=== PATIENT | male | born 1935 | race African-American/Black ===

== ENCOUNTER 2016-10-03 15:20 | Emergency (ER) | payer MEDICARE ==
[2016-10-03 16:13] LABS: INR-International Normal Ratio 1.8; PTT 36.5 SEC (22.9-36.1)
[2016-10-03] MEDS ORDERED: Enoxaparin Sodium 100 MG/ML SYRINGE ONE (16:19)
[2016-10-03 16:20] LABS: Anion Gap 13 mmol/L (10-20); BUN (Urea Nitrogen) 14 mg/dL (8.4-25.7); Calc. Creatinine Clearance 0 mL/min (70-130); Calcium 8.7 mg/dL (7.8-10.44); Carbon Dioxide 25 mmol/L (23-31); Chloride 109 mmol/L (98-107); Estimated GFR-MDRD 66; Glucose 103 mg/dL (83-110); Potassium 3.5 mmol/L (3.5-5.1); Sodium 143 mmol/L (136-145)
[2016-10-03 16:31] LABS: Eosinophils 3 % (0-10); Hemoglobin 13.1 g/dL (14.0-18.0); Lymphocytes 25 % (21-51); MDiff Complete? YES; Mean Corpuscular HGB CONC 31.5 g/dL (32.0-36.0); Mean Corpuscular Hemoglobin 25.9 pg (27.0-31.0); Mean Corpuscular Volume 82.4 fl (80.0-94.0); Mean Platelet Volume 8.2 fL (7.4-10.4); Monocytes 7 % (0-10); Neutrophil 65 % (42-75); Platelet Count 200 thou/uL (130-400); RBC Distribution Width 13.9 % (11.5-14.5); Red Blood Cell (RBC) Count 5.05 mill/uL (4.70-6.10); Target Cells SLIGHT = 2-5 cells (100X) (0-1/hpf); White Blood Cell (WBC) Count 6.7 thou/uL (4.8-10.8)
== END 2016-10-03 16:44 | disposition short-term general hospital (02) ==
LOC: BURERS 15:20
DX: R60.0 Localized edema (principal); Z86.73 Personal history of transient ischemic attack (TIA), and cerebral infarction without residual deficits; Z79.01 Long term (current) use of anticoagulants
CPT/HCPCS: 80048; 85025; 85610; 85730; 96372; J1650

== ENCOUNTER 2016-11-03 15:35 | Emergency (ER) | payer MEDICARE ==
[2016-11-03] MEDS ORDERED: HYDROcodone/Acetaminophen 5/325 mg Tablet ONE (15:47)
--- NOTE | 2016-11-03 17:42 | CT ---
CT OF BRAIN PERFORMED WITHOUT CONTRAST ENHANCEMENT: 11/03/16 HISTORY: Patient fell. On blood thinners. There is generalized ventricular and sulcal prominence. There is decreased attenuation of the perive ntricular white matter consistent with chronic ischemic white matter change. There is no signs of in tracerebral hemorrhage or extra-axial fluid collections. There is some mucosal change in the mastoid air cells. The visualized sinuses are clear. IMPRESSION: No acute intracranial abnormalities. POS: [facility]
--- NOTE | 2016-11-03 17:45 | CT ---
CT OF LUMBAR SPINE PERFORMED WITHOUT CONTRAST ENHANCEMENT: 11/03/16 HISTORY: Back pain status post fall. The abdominal aorta is normal in caliber. Small periaortic nodes are seen. The visualized portions o f the kidneys show a small hypodensity involving the right kidney, most likely a small cyst. The vertebral bodies show some minimal compression changes of the superior end plate of L2 without b yareli retropulsion. I suspect that this is more acute in nature. The remainder of the vertebral bodies maintain normal height. There is degenerative osteophytes present and there is moderate disc narrow ing at L5-S1. Degenerative facet changes are noted. The facet changes are associated with canal narr owing at L2-3, L3-4, and L4-5 which is mild to moderate. Some of this is related to somewhat congeni tally narrowed appearing canal. IMPRESSION: Very mild acute appearing compression injury involving the superior end plate of L2. POS: [facility]
== END 2016-11-03 18:08 | disposition home or self-care (01) ==
LOC: BURERS 15:35
DX: S32.029A Unspecified fracture of second lumbar vertebra, initial encounter for closed fracture (principal); E78.00 Pure hypercholesterolemia, unspecified; Z86.73 Personal history of transient ischemic attack (TIA), and cerebral infarction without residual deficits; Z86.718 Personal history of other venous thrombosis and embolism; Z79.01 Long term (current) use of anticoagulants; W05.0XXA Fall from non-moving wheelchair, initial encounter
CPT/HCPCS: 70450; 72131

== ENCOUNTER 2017-04-24 15:30 | Emergency (ER) | payer MEDICARE | END 2017-04-24 16:12 | disposition home or self-care (01) | LOC: BURERS 15:30 | DX: I83.228 Varicose veins of left lower extremity with both ulcer of other part of lower extremity and inflammation (principal); E78.00 Pure hypercholesterolemia, unspecified; Z86.718 Personal history of other venous thrombosis and embolism | CPT/HCPCS: 99282 ==

== ENCOUNTER 2017-07-14 13:45 | Inpatient (IN) | payer MEDICARE ==
[2017-07-14 18:21] VITALS: BMI 23.3
[2017-07-14 18:45] LABS: Prothrombin Time 22.9 SEC (12.0-14.7)
[2017-07-14] MEDS: Docusate 100 MG CAP PO SCH (20:34)
[2017-07-14] MEDS: Atorvastatin Calcium 10 MG TAB PO SCH (20:34)
[2017-07-14] MEDS: Sulfameth/Trimethoprim DS 800-160mg TAB PO SCH (20:34)
[2017-07-14] MEDS: hydrALAZINE 25 MG TAB PO SCH (20:35)
[2017-07-14] MEDS ORDERED: Prevnar 13-Val Conj/PF 0.5 ML SYRINGE IM ONE (21:00)
[2017-07-15 05:25] LABS: INR-International Normal Ratio 1.9
[2017-07-15 05:36] LABS: Hemoglobin 13.4 g/dL (14.0-18.0); Platelet Count 319 thou/uL (130-400)
[2017-07-15] MEDS: Sulfameth/Trimethoprim DS 800-160mg TAB PO SCH ×2 (08:47→20:49)
[2017-07-15] MEDS: Docusate 100 MG CAP PO SCH ×2 (08:47→20:49)
[2017-07-15] MEDS: Aspirin 81 mg Enteric Coated Tablet PO SCH (08:48)
[2017-07-15] MEDS: hydrALAZINE 25 MG TAB PO SCH ×3 (08:48→20:48)
[2017-07-15] MEDS: Warfarin Sodium 7.5 MG TAB PO SCH (17:26)
[2017-07-15] MEDS ORDERED: Zolpidem Tartrate 5 MG TAB PO PRN (18:45)
[2017-07-15] MEDS ORDERED: Simethicone Chewable 80 MG TAB PO PRN (18:48)
[2017-07-15] MEDS: Atorvastatin Calcium 10 MG TAB PO SCH (20:49)
[2017-07-16] MEDS: HYDROcodone/Acetaminophen 5/325 mg Tablet PO PRN (04:19)
[2017-07-16 05:23] LABS: INR-International Normal Ratio 1.9; Prothrombin Time 21.9 SEC (12.0-14.7)
[2017-07-16] MEDS: hydrALAZINE 25 MG TAB PO SCH ×3 (09:08→21:06)
[2017-07-16] MEDS: Aspirin 81 mg Enteric Coated Tablet PO SCH (09:08)
[2017-07-16] MEDS: Sulfameth/Trimethoprim DS 800-160mg TAB PO SCH ×2 (09:08→21:01)
[2017-07-16] MEDS: Docusate 100 MG CAP PO SCH ×2 (09:08→21:06)
[2017-07-16] MEDS: Warfarin Sodium 7.5 MG TAB PO SCH (17:16)
[2017-07-16] MEDS: Atorvastatin Calcium 10 MG TAB PO SCH (21:08)
[2017-07-16] MEDS: Zolpidem Tartrate 5 MG TAB PO PRN (22:02)
[2017-07-17 05:47] LABS: Prothrombin Time 23.6 SEC (12.0-14.7)
[2017-07-17 06:49] LABS: Hemoglobin 13.5 g/dL (14.0-18.0); Platelet Count 333 thou/uL (130-400)
[2017-07-17] MEDS: hydrALAZINE 25 MG TAB PO SCH ×3 (09:07→20:10)
[2017-07-17] MEDS: Aspirin 81 mg Enteric Coated Tablet PO SCH (09:07)
[2017-07-17] MEDS: Sulfameth/Trimethoprim DS 800-160mg TAB PO SCH ×2 (09:07→20:11)
[2017-07-17] MEDS: Docusate 100 MG CAP PO SCH ×2 (10:24→20:09)
[2017-07-17] MEDS: Warfarin Sodium 5 MG TAB PO SCH (17:34)
[2017-07-17] MEDS: Atorvastatin Calcium 10 MG TAB PO SCH (20:09)
[2017-07-18] MEDS: Zolpidem Tartrate 5 MG TAB PO PRN (00:05)
[2017-07-18 05:41] LABS: INR-International Normal Ratio 2.4; Prothrombin Time 27.1 SEC (12.0-14.7)
[2017-07-18] MEDS: Docusate 100 MG CAP PO SCH ×2 (08:10→20:36)
[2017-07-18] MEDS: Sulfameth/Trimethoprim DS 800-160mg TAB PO SCH ×2 (08:10→20:37)
[2017-07-18] MEDS: hydrALAZINE 25 MG TAB PO SCH ×2 (08:10→20:36)
[2017-07-18] MEDS: Aspirin 81 mg Enteric Coated Tablet PO SCH (08:11)
[2017-07-18] MEDS ORDERED: Acetaminophen 325 MG TAB PO PRN (11:11)
[2017-07-18] MEDS: Warfarin Sodium 7.5 MG TAB PO SCH (16:36)
[2017-07-18] MEDS: Atorvastatin Calcium 10 MG TAB PO SCH (20:36)
[2017-07-19 06:06] LABS: INR-International Normal Ratio 2.6
[2017-07-19 07:08] LABS: Hemoglobin 14.3 g/dL (14.0-18.0); Platelet Count 343 thou/uL (130-400)
--- NOTE | 2017-07-19 07:17 | HP ---
PRIMARY CARE PHYSICIAN: Dr. Martines ADMITTING PHYSICIAN: Connie Banerjee M.D. CHIEF COMPLAINT: Wound care and physical therapy. HISTORY OF PRESENT ILLNESS: Mr. Yi is an 83-year-old male with hypertension, CVA with residual left hemiparesis, history of right lower extremity DVT on Coumadin, prostate cance r and chronic left lower extremity nonhealing wound with ulceration secondary to chronic venous insuf ficiency with stasis dermatitis. The patient's receives wound care from home health with monthly fol low up at [facility]. He was admitted at [facility] on 018 for worsening chronic nonhealing left lower extremity wound with failed outpatient wound therapy and completed course of Augmentin and Cipro. The patient had a left tibia/fibula x-ray showing arthr itic changes, soft tissue calcification, chronic periosteal appearing change along the medial side of the distal tibial shaft. Cannot exclude osteomyelitis. He was subsequently placed on IV Zosyn. Th e patient had a negative left lower extremity ultrasound, ruled out DVT and negative MRI for osteo. During his stay, he was evaluated and treated by physical therapy for deconditioning. He was subsequ ently referred to our facility for wound care with therapy. Admitting vital signs showed blood press ure of 160/81, pulse of 76, temperature of 97.7, respiratory rate of 16, O2 sat 96% on room air. The patient complained of left lower rib cage pain, possibly from gas and not being able to sleep. He r equested for sleeping medication. The patient agrees with plan to continue wound care and hoping to stay at our facility for 2 weeks. He confirmed that he will be going home and possibly continue with home health again. PAST MEDICAL HISTORY: 1. Hypertension. 2. Cerebrovascular accident with left hemiparesis. 3. Prostate cancer. FAMILY HISTORY: Denies history of cancer or early coronary artery disease. PAST SURGICAL HISTORY: 1. Prostatectomy. 2. Inguinal herniorrhaphy. ALLERGIES: No known drug allergies. MEDICATIONS: 1. Coumadin 10 mg Monday and Monday, 7.5 mg Monday, Monday, Monday, , and Monday. 2. Bactrim-DS 1 tablet b.i.d. 3. Hydralazine 25 mg t.i.d. 4. Colace 200 mg b.i.d. 5. Lipitor 10 mg daily. 6. Aspirin 81 mg daily. REVIEW OF SYSTEMS: GENERAL: No fever, no chills, no significant weight loss. HEENT: Positive for blurred vision. Positive for mild hearing loss. Negative for sore throat. CARDIOVASCULAR: Negative for chest pain. Negative for shortness of breath. RESPIRATORY: No wheezing or cough. GASTROINTESTINAL: Positive for mild left upper quadrant pain, possibly from gas. Positive for occas ional constipation. Positive for bloating. GENITOURINARY: No dysuria, no hematuria. MUSCULOSKELETAL: Positive for a weak left shoulder and arm secondary to residual weakness after his stroke. Positive for flexion contracture limiting range of motion. SKIN: See HPI. NEUROLOGIC: No recent focal motor weakness or paresthesias. HEMATOLOGIC: Denies any bruising or bleeding. PHYSICAL EXAMINATION: VITAL SIGNS: Temperature of 98.4, pulse of 76, blood pressure of 160/81, O2 sat 96% on room air, res piratory rate of 16. GENERAL: The patient is alert, oriented, not in respiratory distress. HEENT: Normocephalic, atraumatic. Pupils equally reactive to light. NECK: Supple. Negative for lymphadenopathy. CHEST AND LUNGS: Symmetrical expansion. Clear to auscultation. HEART: Regular rate and rhythm. Negative for murmur. ABDOMEN: Flat, soft, nontender, normoactive bowel sounds. EXTREMITIES: Positive for left flexion contracture of the left upper extremity. SKIN: Positive for 14 x 6 x 0.1 cm wound with red granulation, no bleeding, no drainage. Positive f or scaling of skin on both feet with dystrophic nails. PSYCHIATRIC: Appropriate affect and demeanor. VASCULAR: Positive for good dorsalis pedis on the right foot, unable to feel on the left foot. LABORATORY: Hemoglobin of 13.4, hematocrit of 43. PT of 22. INR of 2.0. ASSESSMENT: 1. Chronic nonhealing left lower extremity ulceration secondary to chronic venous hypertension, veno us insufficiency and stasis dermatitis with failed outpatient wound therapy. 2. Physical deconditioning. 3. Hypertension. 4. Cerebrovascular accident with left hemiparesis. 5. Constipation. 6. History of prostate cancer. PLAN: 1. We will continue wound care and refer him to [facility] business process specialist in [place]. 2. Continue PT to address physical deconditioning. 3. Start mild analgesic for pain control. 4. Start simethicone to address abdominal gas pains. 5. Reconcile medication list and adjust as necessary. 6. Routine nursing care. Possible discharge in 1-2 weeks. Case management to arrange for home health with wound therapy.
[2017-07-19] MEDS: hydrALAZINE 25 MG TAB PO SCH ×2 (07:41→20:36)
[2017-07-19] MEDS: Docusate 100 MG CAP PO SCH ×2 (07:41→20:35)
[2017-07-19] MEDS: Aspirin 81 mg Enteric Coated Tablet PO SCH (07:41)
[2017-07-19] MEDS: Sulfameth/Trimethoprim DS 800-160mg TAB PO SCH ×2 (07:41→20:35)
[2017-07-19] MEDS: Warfarin Sodium 7.5 MG TAB PO SCH (17:08)
[2017-07-19] MEDS: Atorvastatin Calcium 10 MG TAB PO SCH (20:36)
[2017-07-19] MEDS: Zolpidem Tartrate 5 MG TAB PO PRN (23:54)
[2017-07-19] MEDS: HYDROcodone/Acetaminophen 5/325 mg Tablet PO PRN (23:56)
[2017-07-20 06:06] LABS: INR-International Normal Ratio 2.5; Prothrombin Time 27.8 SEC (12.0-14.7)
[2017-07-20] MEDS: Sulfameth/Trimethoprim DS 800-160mg TAB PO SCH ×2 (08:41→21:01)
[2017-07-20] MEDS: Docusate 100 MG CAP PO SCH ×2 (08:41→21:01)
[2017-07-20] MEDS: hydrALAZINE 25 MG TAB PO SCH ×2 (08:41→21:01)
[2017-07-20] MEDS: Aspirin 81 mg Enteric Coated Tablet PO SCH (08:42)
[2017-07-20] MEDS: Warfarin Sodium 7.5 MG TAB PO SCH (17:16)
[2017-07-20] MEDS: Atorvastatin Calcium 10 MG TAB PO SCH (21:01)
[2017-07-21] MEDS: Zolpidem Tartrate 5 MG TAB PO PRN (02:33)
[2017-07-21 05:12] LABS: Hemoglobin 13.5 g/dL (14.0-18.0); Platelet Count 309 thou/uL (130-400)
[2017-07-21 05:24] LABS: INR-International Normal Ratio 2.8; Prothrombin Time 30.5 SEC (12.0-14.7)
[2017-07-21] MEDS: Aspirin 81 mg Enteric Coated Tablet PO SCH (08:59)
[2017-07-21] MEDS: Docusate 100 MG CAP PO SCH ×2 (09:00→21:22)
[2017-07-21] MEDS: Sulfameth/Trimethoprim DS 800-160mg TAB PO SCH ×2 (09:01→21:22)
[2017-07-21] MEDS: hydrALAZINE 25 MG TAB PO SCH ×2 (09:01→21:23)
[2017-07-21] MEDS: Warfarin Sodium 5 MG TAB PO SCH (17:28)
[2017-07-21] MEDS: Atorvastatin Calcium 10 MG TAB PO SCH (21:23)
[2017-07-22 06:11] LABS: Prothrombin Time 32.2 SEC (12.0-14.7)
[2017-07-22 06:57] VITALS: BP 110/72; TEMP 97.9
[2017-07-22] MEDS: Docusate 100 MG CAP PO SCH (09:03)
[2017-07-22] MEDS: hydrALAZINE 25 MG TAB PO SCH (09:03)
[2017-07-22] MEDS: Aspirin 81 mg Enteric Coated Tablet PO SCH (09:03)
[2017-07-22] MEDS: Sulfameth/Trimethoprim DS 800-160mg TAB PO SCH (09:03)
== END 2017-07-22 12:30 | disposition home health service (06) | DRG 593 ==
LOC: BURMED 16:45
PROVIDERS: ADMIT Family Medicine; ATTEND Family Medicine
DX: L97.829 Non-pressure chronic ulcer of other part of left lower leg with unspecified severity (principal); I83.228 Varicose veins of left lower extremity with both ulcer of other part of lower extremity and inflammation; I69.354 Hemiplegia and hemiparesis following cerebral infarction affecting left non-dominant side; R53.1 Weakness; Z86.718 Personal history of other venous thrombosis and embolism; Z79.01 Long term (current) use of anticoagulants; I10 Essential (primary) hypertension; Z85.46 Personal history of malignant neoplasm of prostate; Z79.82 Long term (current) use of aspirin; K59.00 Constipation, unspecified
CPT/HCPCS: 36415; 85014; 85018; 85049; 85610; 87070; 87205; 90471; 90670; G0009; G8987-GO-CJ; G8988-GO-CI

== ENCOUNTER 2017-08-29 17:25 | Inpatient (IN) | payer MEDICARE ==
[2017-08-29] MEDS ORDERED: Piperacillin/Tazobactam 3.375 GM VIAL ONE (18:00)
[2017-08-29 18:20] LABS: Hemoglobin 11.9 g/dL (14.0-18.0); Mean Corpuscular HGB CONC 31.4 g/dL (32.0-36.0); Mean Corpuscular Hemoglobin 24.5 pg (27.0-31.0); Mean Corpuscular Volume 78.1 fL (78.0-98.0); Mean Platelet Volume 8.1 fL (7.4-10.4); Platelet Count 192 thou/uL (130-400); RBC Distribution Width 14.4 % (11.5-14.5); Red Blood Cell (RBC) Count 4.86 mill/uL (4.70-6.10); White Blood Cell (WBC) Count 5.6 thou/uL (4.8-10.8)
[2017-08-29 18:35] LABS: ALT (SGPT) 10 U/L (8-55); AST (SGOT) 19 U/L (5-34); Albumin 3.4 g/dL (3.4-4.8); Alkaline Phosphatase 95 U/L (40-150); Anion Gap 13 mmol/L (10-20); BUN (Urea Nitrogen) 11 mg/dL (8.4-25.7); Bilirubin, Total 0.6 mg/dL (0.2-1.2); Calc. Creatinine Clearance 0 mL/min (70-130); Calcium 8.7 mg/dL (7.8-10.44); Carbon Dioxide 25 mmol/L (23-31); Chloride 108 mmol/L (98-107); Estimated GFR-MDRD 81; Globulin 3.7 g/dL (2.4-3.5); Glucose 82 mg/dL (83-110); Potassium 3.5 mmol/L (3.5-5.1); Protein, Total 7.1 g/dL (5.8-8.1); Sodium 142 mmol/L (136-145)
[2017-08-29 18:49] LABS: #Basophils 0.1 thou/uL (0.0-0.2); #Eosinphils 0.2 thou/uL (0.0-0.7); #Lymphocytes 2.2 thou/uL (1.20-3.40); #Monocytes 0.3 thou/uL (0.11-0.59); #Neutrophils 2.8 thou/uL (1.40-6.50); %Basophils 1.8 % (0.0-1.0); %Lymphocytes 39.6 % (21.0-51.0); %Neutrophils 49.5 % (42.0-75.0); Hypochromia SLIGHT = 6-15 cells (100X) (0-5/hpf); MDiff Complete? YES
[2017-08-29 22:28] VITALS: BMI 24.0
[2017-08-30] MEDS ORDERED: DOCUSATE SODIUM 200 MG PO SCH (09:00)
[2017-08-30] MEDS ORDERED: Sulfameth/Trimethoprim DS 800-160mg TAB PO SCH (09:00)
[2017-08-30] MEDS ORDERED: Aspirin 81 mg Enteric Coated Tablet PO SCH (09:00)
--- NOTE | 2017-08-30 09:32 | HP ---
DATE OF ADMISSION: 08/29/2017 CHIEF COMPLAINT: Cellulitis from chronic venous stasis ulcer to left lower extremity. HISTORY OF PRESENT ILLNESS: An 82-year-old male with chronic venous stasis of the left lower extremity resulting in ulcerations. He was recently seen at [facility] who obtained a wound culture from the ulcerated lesion to the left lower extremity. Reportedly, this culture showed resistance to oral antibiotics and requirement to be treated by IV antibiotics alone. This culture was relayed to the [facility] Emergency Department physician, Dr. Brian, who has started the patient on Zosyn accordingly. The culture results are to be confirmed beyond this. The patient reports to be in his usual state of health otherwise. He denies having fever, chills or diaphoresis. He does have chronic deconditioning and typically uses a cane or wheelchair at home due to his difficulty with ambulation. This is somewhat in regards to his history of CVA which has affected his left extremities. He reports his intake and output to be at baseline. He is well aware of his reason to be here to receive IV antibiotics and have further wound care. PAST MEDICAL HISTORY: History of cerebrovascular accident with residual left- sided weakness and left upper extremity contracture, right lower extremity deep venous thrombosis, chronic lymphedema, history of prostate cancer, history of tobacco abuse, history of hyperlipidemia. PAST SURGICAL HISTORY: Prostatectomy, hernia repair. ALLERGIES: No known drug allergies. FAMILY HISTORY: Noncontributory. SOCIAL HISTORY: The patient lives with his at home and has [facility]. CURRENT MEDICATIONS: Aspirin 81 mg p.o. daily, atorvastatin 10 mg p.o. at bedtime, docusate sodium 200 mg p.o. b.i.d., hydralazine 25 mg p.o. t.i.d., Coumadin 5 mg p.o. daily. REVIEW OF SYSTEMS: GENERAL: Denies fever, chills or diaphoresis. EARS, NOSE AND THROAT: Denies sore throat, nasal drainage or congestion. CARDIOVASCULAR: Denies chest pain or palpitations. RESPIRATORY: Denies dyspnea or cough. GASTROINTESTINAL: Denies abdominal pain, nausea, vomiting, diarrhea or constipation. GENITOURINARY: Denies dysuria or hematuria. MUSCULOSKELETAL: Denies joint swelling. DERMATOLOGIC: Chronic ulcerations to the left lower extremity. NEUROLOGIC: Denies headache. LABORATORY DATA: Show a white blood cell count 5.6, H&H is 11.9 and 37.9, platelets are 192. Sodium 142, potassium 3.5, BUN 11, creatinine 1.06, GFR of 81, glucose is 82. Liver enzymes are within normal limits. We do not currently have an INR value. PHYSICAL EXAMINATION: VITAL SIGNS: Temperature is 98.6, pulse is 91, respiratory rate is 18, oxygen is 100% on room air, blood pressure is 135/73. GENERAL: Elderly patient, alert and oriented, in no acute distress. FACE: No asymmetry. EYES: Conjunctivae are clear. Extraocular muscles are intact. No discharge. Arcus senilis. HEENT: Within normal limits. Oral cavity; moist mucous membranes with poor dentition. NECK: Supple, full range of motion. No lymphadenopathy, no meningeal signs. CARDIOVASCULAR: Regular rate and rhythm, normal S1, S2. No murmurs, rubs or gallops. RESPIRATORY: Clear to auscultation bilaterally with no wheezes, rales or rhonchi. ABDOMEN: Soft, nontender to palpation. No organomegaly. EXTREMITIES: No clubbing or cyanosis. Trace edema to the right lower extremity , 1+ edema to the left lower extremity. This is a right TIV. Thickened discolored toenails. MUSCULOSKELETAL: Generalized weakness. SKIN: There is an area of skin breakdown of the distal medial left lower extremity with mild superficial warmth and faint erythema. NEUROLOGIC: Nonfocal. Cranial nerves II-XII are grossly intact. He has chronic left upper extremity weakness with contracture. IMPRESSION: 1. Cellulitis of left lower extremity. The patient has been started on Zosyn. We will confirm that this is the proper antibiotic via the wound culture that was obtained at [facility]. We will follow up blood and wound cultures. We will provide further wound care. The patient is afebrile with no leukocytosis at present. 2. Chronic venous stasis ulcers. We will encourage elevation of the legs and provide wound care for his venous stasis ulcers. Will also seek Podiatry consultation secondary to the patient needing toenail care. 3. History of cerebrovascular accident. The patient is on Coumadin. We will have the pharmacy dose this per protocol. We do not have a current INR value. 4. Hypertension. The patient is hemodynamically stable. We will resume home blood pressure medications. 5. Hyperlipidemia. The patient is on statin. We will continue this. 6. Physical deconditioning. We will proceed with PT and OT while the patient is here. 7. Prophylaxis, we will add famotidine for gastrointestinal prophylaxis and as noted the patient is on Coumadin. DISPOSITION: The patient will complete a course of IV antibiotics per cultures and then either return home with [facility] versus a nursing care facility if needed pending his progress with PT and OT. MARY BETH
[2017-08-30] MEDS: hydrALAZINE 25 MG TAB PO SCH ×3 (09:50→21:13)
[2017-08-30] MEDS: Famotidine 20 MG TAB PO SCH ×2 (09:51→21:13)
[2017-08-30] MEDS: Docusate 100 MG CAP PO SCH ×2 (09:51→21:12)
[2017-08-30] MEDS: Piperacillin/Tazobactam 3.375 GM in Sodium Chloride 0.9% 100 ML IVPB SCH ×3 (12:28→23:53)
[2017-08-30] MEDS: Warfarin Sodium 5 MG TAB PO SCH (16:05)
[2017-08-30] MEDS ORDERED: WARFARIN SODIUM 5 MG PO SCH (17:00)
[2017-08-30] MEDS: Atorvastatin Calcium 10 MG TAB PO SCH (21:13)
[2017-08-31] MEDS: Piperacillin/Tazobactam 3.375 GM in Sodium Chloride 0.9% 100 ML IVPB SCH ×3 (05:27→18:39)
[2017-08-31 06:02] LABS: INR-International Normal Ratio 2.3; Prothrombin Time 25.8 SEC (12.0-14.7)
[2017-08-31] MEDS: Docusate 100 MG CAP PO SCH ×2 (09:36→21:48)
[2017-08-31] MEDS: hydrALAZINE 25 MG TAB PO SCH ×3 (09:37→21:48)
[2017-08-31] MEDS: Famotidine 20 MG TAB PO SCH ×2 (09:41→21:51)
[2017-08-31] MEDS: Warfarin Sodium 5 MG TAB PO SCH (18:41)
[2017-08-31] MEDS: Zolpidem Tartrate 5 MG TAB PO SCH (21:48)
[2017-08-31] MEDS: Atorvastatin Calcium 10 MG TAB PO SCH (21:48)
[2017-09-01] MEDS: Piperacillin/Tazobactam 3.375 GM in Sodium Chloride 0.9% 100 ML IVPB SCH ×4 (00:16→18:26)
[2017-09-01 05:42] LABS: Prothrombin Time 23.4 SEC (12.0-14.7)
[2017-09-01] MEDS: hydrALAZINE 25 MG TAB PO SCH ×3 (09:19→22:00)
[2017-09-01] MEDS: Famotidine 20 MG TAB PO SCH ×2 (09:19→22:00)
[2017-09-01] MEDS: Docusate 100 MG CAP PO SCH ×2 (09:19→22:01)
[2017-09-01] MEDS ORDERED: Warfarin Sodium 3 MG TAB PO SCH (17:00)
[2017-09-01 18:33] VITALS: TEMP 98.3
[2017-09-01] MEDS: Atorvastatin Calcium 10 MG TAB PO SCH (22:00)
[2017-09-01 22:01] VITALS: BP 123/58
[2017-09-01] MEDS: Zolpidem Tartrate 5 MG TAB PO SCH (23:05)
--- NOTE | 2017-09-02 06:54 | DIS ---
DATE OF ADMISSION: 08/29/2017 DATE OF DISCHARGE: From acute inpatient to swing bed status, 09/01/2017. ADMISSION DIAGNOSES: Chronic venous stasis ulcers with development of cellulitis to the left lower extremity, hypertension, hyperlipidemia, history of cerebrovascular accident, physical deconditioning. PROCEDURES: None. HOSPITAL COURSE: An 83-year-old male with chronic venous stasis of lower extremities with development of ulcerations. The patient was seen at [facility] with wound culture obtained from one of the ulcerative lesions of the left lower extremity showing resistance to p.o. antibiotics, thus requiring admission for IV antibiotic care. The patient was started on Zosyn according to these cultures and new cultures have been obtained. Thus far , the new culture shows presumptive Pseudomonas with a preliminary reading; however, we are currently awaiting sensitivities. He has remained afebrile throughout his stay and labs displayed no leukocytosis. Physical therapy and occupational therapy have been ordered as the patient has had a prior cerebrovascular accident with left-sided weakness including chronic contracture of the left upper extremity. He has had no complications during his stay and he is ready to transition from acute inpatient status to swing bed status. DISCHARGE MEDICATIONS: Atorvastatin 10 mg p.o. at bedtime, Colace 200 mg p.o. b.i.d., famotidine 20 mg p.o. b.i.d., hydralazine 25 mg p.o. t.i.d., Zosyn 3.375 grams IV q.6 hours, Coumadin 5 mg p.o. daily, Ambien 10 mg p.o at bedtime. DISPOSITION: The patient is transitioning from acute inpatient status to swing bed status. PLAN: Will be for him to discharge, pending completion of his wound culture with potential transition to p.o. antibiotics versus completing a 7-day course of IV Zosyn. The patient lives at home with his and has further medical needs via Home Health for wound care. MARY BETH
== END 2017-09-01 23:51 | disposition swing bed (61) | DRG 603 ==
LOC: EDBD → BURERS 17:25 → BURMED 17:45
PROVIDERS: ADMIT Family Medicine; ATTEND Family Medicine
DX: L03.116 Cellulitis of left lower limb (principal); I69.354 Hemiplegia and hemiparesis following cerebral infarction affecting left non-dominant side; I89.0 Lymphedema, not elsewhere classified; E78.5 Hyperlipidemia, unspecified; I87.2 Venous insufficiency (chronic) (peripheral); I10 Essential (primary) hypertension; M24.50 Contracture, unspecified joint; G47.00 Insomnia, unspecified; B96.5 Pseudomonas (aeruginosa) (mallei) (pseudomallei) as the cause of diseases classified elsewhere; Z85.46 Personal history of malignant neoplasm of prostate; Z87.891 Personal history of nicotine dependence; Z90.79 Acquired absence of other genital organ(s); Z79.01 Long term (current) use of anticoagulants; Z79.82 Long term (current) use of aspirin; Z79.899 Other long term (current) drug therapy
CPT/HCPCS: 36415; 80053; 85025; 85610; 87040; 87070; 87077; 87186; 87205; 96365; A4216; G8978-GP-CL; G8979-GP-CI; G8987-GO-CK; G8988-GO-CI; J2543; J7050

== ENCOUNTER 2017-09-02 00:36 | Inpatient (IN) | payer MEDICARE ==
[2017-09-02] MEDS: Piperacillin/Tazobactam 3.375 GM in Sodium Chloride 0.9% 100 ML IVPB SCH ×4 (05:43→23:13)
[2017-09-02] MEDS ORDERED: Prevnar 13-Val Conj/PF 0.5 ML SYRINGE IM ONE (09:00)
[2017-09-02] MEDS: Docusate 100 MG CAP PO SCH ×2 (10:05→21:57)
[2017-09-02] MEDS: Famotidine 20 MG TAB PO SCH ×2 (10:05→20:52)
[2017-09-02] MEDS: hydrALAZINE 25 MG TAB PO SCH ×3 (10:06→20:52)
[2017-09-02] MEDS: Warfarin Sodium 3 MG TAB PO SCH (17:11)
[2017-09-02] MEDS: Atorvastatin Calcium 10 MG TAB PO SCH (20:52)
[2017-09-02] MEDS: Zolpidem Tartrate 5 MG TAB PO SCH (23:18)
[2017-09-03] MEDS: Piperacillin/Tazobactam 3.375 GM in Sodium Chloride 0.9% 100 ML IVPB SCH ×3 (05:43→18:07)
[2017-09-03] MEDS: Famotidine 20 MG TAB PO SCH ×2 (09:33→21:00)
[2017-09-03] MEDS: Docusate 100 MG CAP PO SCH ×2 (09:33→21:01)
[2017-09-03] MEDS: hydrALAZINE 25 MG TAB PO SCH ×3 (09:33→21:00)
[2017-09-03 10:16] LABS: INR-International Normal Ratio 1.9; Prothrombin Time 22.1 SEC (12.0-14.7)
[2017-09-03] MEDS: Warfarin Sodium 3 MG TAB PO SCH (17:23)
[2017-09-03] MEDS: Atorvastatin Calcium 10 MG TAB PO SCH (21:00)
[2017-09-04] MEDS: Piperacillin/Tazobactam 3.375 GM in Sodium Chloride 0.9% 100 ML IVPB SCH ×5 (00:06→23:44)
[2017-09-04] MEDS: Zolpidem Tartrate 5 MG TAB PO SCH ×2 (00:07→23:44)
[2017-09-04 06:29] LABS: Hemoglobin 12.2 g/dL (14.0-18.0); Platelet Count 198 thou/uL (130-400)
[2017-09-04 06:36] LABS: INR-International Normal Ratio 1.8; Prothrombin Time 20.7 SEC (12.0-14.7)
[2017-09-04] MEDS: Famotidine 20 MG TAB PO SCH ×2 (08:53→22:06)
[2017-09-04] MEDS: Docusate 100 MG CAP PO SCH ×2 (08:53→22:06)
[2017-09-04] MEDS: hydrALAZINE 25 MG TAB PO SCH ×3 (08:54→22:07)
[2017-09-04] MEDS: Warfarin Sodium 3 MG TAB PO SCH (17:25)
[2017-09-04] MEDS: Atorvastatin Calcium 10 MG TAB PO SCH (22:06)
[2017-09-05] MEDS: Piperacillin/Tazobactam 3.375 GM in Sodium Chloride 0.9% 100 ML IVPB SCH ×4 (05:24→23:07)
[2017-09-05 05:52] LABS: INR-International Normal Ratio 1.7
[2017-09-05] MEDS: Docusate 100 MG CAP PO SCH ×2 (08:15→21:12)
[2017-09-05] MEDS: Famotidine 20 MG TAB PO SCH ×2 (08:16→21:12)
[2017-09-05] MEDS: hydrALAZINE 25 MG TAB PO SCH ×3 (08:16→21:12)
[2017-09-05 12:09] VITALS: BMI 22.0
[2017-09-05] MEDS: Warfarin Sodium 7.5 MG TAB PO SCH (17:27)
[2017-09-05] MEDS: Atorvastatin Calcium 10 MG TAB PO SCH (21:12)
[2017-09-05] MEDS: Zolpidem Tartrate 5 MG TAB PO SCH (23:05)
[2017-09-06 05:19] LABS: Hemoglobin 12.8 g/dL (14.0-18.0); Platelet Count 195 thou/uL (130-400)
[2017-09-06] MEDS: Piperacillin/Tazobactam 3.375 GM in Sodium Chloride 0.9% 100 ML IVPB SCH ×4 (05:35→23:38)
[2017-09-06 05:36] LABS: INR-International Normal Ratio 1.8; Prothrombin Time 21.1 SEC (12.0-14.7)
[2017-09-06] MEDS: hydrALAZINE 25 MG TAB PO SCH ×3 (08:32→20:48)
[2017-09-06] MEDS: Docusate 100 MG CAP PO SCH ×2 (08:34→20:49)
[2017-09-06] MEDS: Famotidine 20 MG TAB PO SCH ×2 (08:35→20:49)
[2017-09-06] MEDS: Warfarin Sodium 7.5 MG TAB PO SCH (16:29)
[2017-09-06] MEDS: Atorvastatin Calcium 10 MG TAB PO SCH (20:48)
[2017-09-06] MEDS: Zolpidem Tartrate 5 MG TAB PO SCH (23:44)
[2017-09-07] MEDS: Piperacillin/Tazobactam 3.375 GM in Sodium Chloride 0.9% 100 ML IVPB SCH ×4 (05:41→23:32)
[2017-09-07 05:50] LABS: INR-International Normal Ratio 1.9; Prothrombin Time 21.7 SEC (12.0-14.7)
[2017-09-07] MEDS: hydrALAZINE 25 MG TAB PO SCH ×3 (08:35→21:12)
[2017-09-07] MEDS: Famotidine 20 MG TAB PO SCH ×2 (08:36→21:11)
[2017-09-07] MEDS: Docusate 100 MG CAP PO SCH ×2 (08:36→21:26)
[2017-09-07] MEDS: Warfarin Sodium 7.5 MG TAB PO SCH (17:15)
[2017-09-07] MEDS: Atorvastatin Calcium 10 MG TAB PO SCH (21:11)
[2017-09-07] MEDS: Zolpidem Tartrate 5 MG TAB PO SCH (23:33)
[2017-09-08 05:36] LABS: Hemoglobin 12.8 g/dL (14.0-18.0); Platelet Count 210 thou/uL (130-400)
[2017-09-08 05:39] LABS: INR-International Normal Ratio 1.9; Prothrombin Time 21.4 SEC (12.0-14.7)
[2017-09-08] MEDS: Piperacillin/Tazobactam 3.375 GM in Sodium Chloride 0.9% 100 ML IVPB SCH ×2 (06:25→12:13)
[2017-09-08 06:56] VITALS: BP 136/79
--- NOTE | 2017-09-08 08:41 | ADD-HP ---
ADDENDUM The patient failed outpatient antibiotic doxycycline prior to his initial wound care culture being ob tained at [facility] which in turn revealed that he required IV antibiotic therap y secondary to resistance to p.o. antibiotics.
[2017-09-08] MEDS: Docusate 100 MG CAP PO SCH (10:03)
[2017-09-08] MEDS: Famotidine 20 MG TAB PO SCH (10:03)
[2017-09-08] MEDS: hydrALAZINE 25 MG TAB PO SCH (10:05)
[2017-09-08 10:45] VITALS: TEMP 98
== END 2017-09-08 12:32 | disposition home or self-care (01) | DRG 603 ==
LOC: EDBD → BURMED 00:36 → EDBD 00:36
PROVIDERS: ADMIT Family Medicine; ATTEND Family Medicine
DX: L03.115 Cellulitis of right lower limb (principal); I69.859 Hemiplegia and hemiparesis following other cerebrovascular disease affecting unspecified side; I87.333 Chronic venous hypertension (idiopathic) with ulcer and inflammation of bilateral lower extremity; B96.89 Other specified bacterial agents as the cause of diseases classified elsewhere; S81.809A Unspecified open wound, unspecified lower leg, initial encounter
CPT/HCPCS: 36415; 85014; 85018; 85049; 85610; A4216; G8978-GP-CJ; G8979-GP-CI; G8987-GO-CJ; G8988-GO-CI; J2543; J7050